=== PATIENT | female | born 1965 | race African-American/Black ===

== ENCOUNTER 2017-12-18 14:08 | Emergency (ER) | payer OTHER ==
[~2017-12-18] VITALS: Ht 160 cm; Wt 63.5 kg
--- NOTE | 2017-12-18 15:27 | RADIOLOGY REPORT ---
EXAMINATION: XR KNEE, RIGHT CLINICAL INFORMATION: Status post intra-articular injection now with pain and swelling. COMPARISON: X-ray of the right knee on 11/23/2017. TECHNIQUE: 5 views of the right knee. FINDINGS: Bones and soft tissues are normal. No fracture or joint effusion. Alignment is anatomic. Juxta articular lucencies involve the articular surface of the patella. No abnormal soft tissue calcification. IMPRESSION: Mild patellofemoral joint disease.
[2017-12-18 15:32] LABS: ABSOLUTE BASOPHIL COUNT 0 /CUMM (0.0-0.2); ABSOLUTE EOSINOPHIL COUNT 0 /CUMM (0.0-0.7); ABSOLUTE GRANULOCYTE CT 12.2 /CUMM (1.4-6.5); ABSOLUTE LYMPH COUNT 0.6 /CUMM (1.2-3.4); ABSOLUTE MONOCYTE COUNT 0 /CUMM (0.10-0.60); BASOPHIL % 0 % (0.0-2.0); EOSINOPHIL % 0 % (0-5); HEMATOCRIT 41.1 % (37-47); MEAN CORPUSCULAR HGB 31.2 PG (27.0-31.0); MEAN CORPUSCULAR HGB CONC 34.3 G/DL (33.0-37.0); MEAN CORPUSCULAR VOLUME 90.8 FL (81.0-99.0); PLATELET COUNT 323 /CUMM (130-400); RED BLOOD CELL CT 4.52 /CUMM (4.20-5.40); WHITE BLOOD CELL COUNT 12.8 /CUMM (4.8-10.8)
[2017-12-18 15:51] LABS: GRANULOCYTE % 95.5 % (42.2-75.2)
--- NOTE | 2017-12-18 16:10 | ED UPPER/LOWER EXTREMITY COMPL ---
History of Present Illness General Chief Complaint: General Adult Stated Complaint: ALLERGIC REACTION FROM CORTIZONE SHOT IN RT KNEE Source: patient, family, old records Exam Limitations: no limitations Vital Signs & Intake/Output Vital Signs & Intake/Output Vital Signs Date Time Temp Pulse Resp B/P B/P Pulse O2 O2 Flow FiO2 Mean Ox Delivery Rate 12/18 1411 98.5 89 18 111/67 97 Room Air Allergies Coded Allergies: No Known Allergies (12/18/17) Reconcile Medications No Known Home Medications Triage Note: 52 Y/O FEMALE C/O ? ALLERGIC REACTION TO R KNEE S/P CORTISONE INJECTION THIS AM. STATES SHE HAS ARTHRITIS UNDER THE KNEECAP AND HAD FIRST INJECTION THIS AM, DR REZA. WAS "FINE" AFTER INJECTION HOWEVER A FEW HOURS AFTER PT NOTICED DIFFICULTY WALKING. SWELLING NOTED AROUND KNEE AND INTO THIGH. PT STATES SHE CANNOT WALK Triage Nurses Notes Reviewed? yes Onset: Just prior to arrival Duration: hour(s):, constant, continues in ED Timing: recent history Severity: moderate, severe Pain/Injury Location: Right: Knee. Method of Injury: intra articular cortisone injection Modifying Factors: Improves With: immobilization, pain medication. Worsens With: movement. Associated Symptoms: swelling, GCS 15 since, stiffness LMP (ages 10-50): post menopausal : No Patient currently breastfeeds: No HPI: Several hours prior to admission patient had intra-articular injection to the right knee. She went shopping and developed increasing right knee pain difficulty ambulating and swelling. She denies fever chills nausea vomiting diarrhea abdominal pain chest pain shortness of breath headache dysuria rash bleeding. Past History Travel History Traveled to [place] past 21 day No Medical History Any Pertinent Medical History? none Neurological: NONE EENT: NONE Cardiovascular: NONE Respiratory: NONE Gastrointestinal: NONE Hepatic: NONE Renal: NONE Musculoskeletal: NONE Psychiatric: NONE Endocrine: NONE Blood Disorders: NONE Cancer(s): NONE POURER/Reproductive: NONE Surgical History Surgical History: non-contributory Psychosocial History What is your primary language Citizen [place] Tobacco Use: Never used Family History Hx Contributory? No Review of Systems Review of Systems Constitutional: Reports: no symptoms. EENTM: Reports: no symptoms. Respiratory: Reports: no symptoms. Cardiovascular: Reports: no symptoms. Gastrointestinal/Abdominal: Reports: no symptoms. Genitourinary: Reports: no symptoms. Musculoskeletal: Reports: see HPI, joint pain. Skin: Reports: no symptoms. Neurological/Psychological: Reports: no symptoms. Hematologic/Endocrine: Reports: no symptoms. Immunological: Reports: no symptoms. All Other Systems: Reviewed and Negative Physical Exam Physical Exam General Appearance: well developed/nourished, mild distress Head: atraumatic Eyes: Bilateral: PERRL, EOMI. Ears, Nose, Throat: normal pharynx, normal ENT inspection, hearing grossly normal Neck: normal inspection, supple Cardiovascular/Respiratory: regular rate/rhythm Peripheral Pulses: 4+ carotid (R), 4+ carotid (L) Back: normal inspection, normal range of motion, no vertebral tenderness Shoulder Left: normal range of motion, normal inspection Shoulder Right: normal range of motion, normal inspection Elbow Left: normal range of motion, normal inspection Elbow Right: normal range of motion, normal inspection Hand Left: normal inspection, normal range of motion Hand Right: normal inspection, normal range of motion Upper Extremity Reflexes: 2+: bicep (R), bicep (L). Leg Left: normal range of motion, normal inspection Leg Right: normal range of motion, normal inspection Hip Left: normal range of motion, normal inspection Hip Right: normal range of motion, normal inspection Knee Left: normal range of motion, normal inspection Knee Right: swelling, tenderness (patellar), soft tissue tenderness, limited range of motion Knee Ligaments Right: pain anterior drawer, pain posterior drawer, pain medial stress, pain lateral stress Foot Left: normal inspection, normal range of motion Foot Right: normal inspection, normal range of motion Lower Extremity Reflexes: 2+: ankle (R), ankle (L). Neurologic/Tendon: normal sensation, normal motor functions, normal tendon functions Skin: intact, normal color, warm/dry Lymphatic: no anterior cervical angela Progress Differential Diagnosis: compartment syndrome, septic arthritis, tendon injury Plan of Care: Orders Procedure Date/time Status Durable Medical Equipment 12/18 1656 Active HIGH SENSITIVITY CRP 12/18 1446 Complete WESTERGREN SED RATE 12/18 1446 Complete COMPREHENSIVE METABOLIC PANEL 12/18 144 Complete CBC WITHOUT DIFFERENTIAL 12/18 1445 Complete Laboratory Tests 12/18/17 1515: Anion Gap 15, Estimated GFR > 60, BUN/Creatinine Ratio 18.9, Glucose 120 H, Calcium 10.3 H, Total Bilirubin 0.6, AST 21, ALT 24, Alkaline Phosphatase 51, C -React Prot High Sens 2.5, Total Protein 8.5 H, Albumin 4.7, Globulin 3.8, Albumin/Globulin Ratio 1.2, CBC w Diff NO MAN DIFF REQ, RBC 4.52, MCV 90.8, MCH 31.2 H, MCHC 34.3, RDW 14.0, MPV 8.0, Gran % 95.5 H, Lymphocytes % 4.4 L, Monocytes % 0.1 L, Eosinophils % 0, Basophils % 0, Absolute Granulocytes 12.2 H, Absolute Lymphocytes 0.6 L, Absolute Monocytes 0 L, Absolute Eosinophils 0, Absolute Basophils 0, ESR Westergren 22 H Diagnostic Imaging: Viewed by Me: Radiology Read. Discussed w/RAD: Radiology Read. Radiology Impression: Bones and soft tissues are normal. No fracture or joint effusion. Alignment is anatomic. Juxta articular lucencies involve the articular surface of the patella. No abnormal soft tissue calcification. IMPRESSION: Mild patellofemoral joint disease. Departure Departure Time of Disposition: 1652 Disposition: HOME OR SELF CARE Condition: Stable Clinical Impression Primary Impression: Degenerative arthritis of knee Secondary Impressions: Adverse drug reaction Referrals: Radha Ruelas (PCP/Family) Makenzie MALDONADO,David Farooq Departure Forms: Customer Survey General Discharge Information Prescriptions: Current Visit Scripts Ibuprofen 1 TAB PO Q6PRN PRN pain #50 TAB with food Diphenhydramine HCl (Benadryl Allergy) 1-2 TAB PO Q6P PRN itchy rash #30 TAB Ref 1
[2017-12-18] MEDS ORDERED: BENADRYL ALLERG25 M2 PO (16:56)
[2017-12-18] MEDS ORDERED: IBUPROFEN600 M1 PO (16:56)
[2017-12-18 17:15] VITALS: BP 118/71
== END 2017-12-18 17:16 ==
LOC: ERH 14:08
PROVIDERS: Emergency Medicine
DX: M17.11 Unilateral primary osteoarthritis, right knee (principal); T50.991A Poisoning by other drugs, medicaments and biological substances, accidental (unintentional), initial encounter
CPT/HCPCS: 73562-RT; 96374; 96375; J1200; J1885